=== PATIENT | male | born 1985 | race Caucasian/White ===

== ENCOUNTER 2020-04-12 09:11 | Emergency (ER) | payer MEDICARE, MEDICAID ==
[~2020-04-12] VITALS: Ht 182.9 cm; Wt 136.1 kg
[2020-04-12 10:52] VITALS: BP 139/91
== END 2020-04-12 10:53 | disposition home or self-care (01) ==
LOC: M.ERS 09:11
DX: R50.9 Fever, unspecified (principal); Z20.828 Contact with and (suspected) exposure to other viral communicable diseases; E11.9 Type 2 diabetes mellitus without complications; R19.7 Diarrhea, unspecified